=== PATIENT | male | born 1940 | race Caucasian/White ===

== ENCOUNTER → 2018-05-14 | Outpatient (CLI) | payer MEDICARE, OTHER ==
[~2018-05-14] MED LIST: ACTOS 45MG45 MG/TAB PO; ASPIRIN 81M81 MG/TA2 PO; BUSPAR DIVIDOSE15 MG PO; BYSTOLIC5 MG PO; CATAPRES 0.1MG0.1 MG PO; COUMADIN 5MG5 MG/TAB PO; COUMADIN 77.5 MG/TAB PO; FLOMAX 0.40.4 MG/CAP PO; GLUCOPHAGE1000 MG PO; GLUCOTROL 5M5 MG/TAB PO; GLUCOTROL10 MG PO; HCTZ 25MG TAB25 MG PO; LANOXIN 0.25M0.25 MG PO; LANTUS100 U/ML SQ; LIPITOR 40MG TA40 MG PO; NEURONTIN300 MG/CAP PO; NIACOR500 MG PO; PERCOCET 325 MG1 TA2 PO; PRINIVIL10 MG PO; TRICOR145 MG PO; ZOFRAN8 MG PO
== END ==
LOC: COL.PUL 08:55
DX: R91.8 Other nonspecific abnormal finding of lung field (principal); I27.20 Pulmonary hypertension, unspecified; R06.02 Shortness of breath
CPT/HCPCS: A9539; A9540; J7674

== ENCOUNTER → 2019-03-26 | Outpatient (CLI) | payer MEDICARE, OTHER ==
[~2019-03-26] MED LIST changes: +ELIQUIS 5MG PO
== END ==
LOC: COL.RAD 09:27
DX: N18.3 Chronic kidney disease, stage 3 (moderate) (principal); N28.1 Cyst of kidney, acquired

== ENCOUNTER → 2019-07-05 | Outpatient (CLI) | payer MEDICARE, OTHER | LOC: COL.RAD 09:34 | DX: M47.816 Spondylosis without myelopathy or radiculopathy, lumbar region (principal) ==

== ENCOUNTER → 2019-07-31 | Outpatient (CLI) | payer MEDICARE, OTHER | LOC: MHCPAIN 10:11 | DX: G89.29 Other chronic pain (principal); M47.817 Spondylosis without myelopathy or radiculopathy, lumbosacral region; M54.16 Radiculopathy, lumbar region; M53.3 Sacrococcygeal disorders, not elsewhere classified; M96.1 Postlaminectomy syndrome, not elsewhere classified | CPT/HCPCS: G0463 ==

== ENCOUNTER → 2019-10-09 | Outpatient (CLI) | payer MEDICARE, OTHER | LOC: MHCPAIN 13:07 | DX: G89.29 Other chronic pain (principal); M47.817 Spondylosis without myelopathy or radiculopathy, lumbosacral region; M54.16 Radiculopathy, lumbar region; M53.3 Sacrococcygeal disorders, not elsewhere classified; M48.061 Spinal stenosis, lumbar region without neurogenic claudication | CPT/HCPCS: G0463 ==

== ENCOUNTER 2019-11-12 10:00 | Outpatient (RCR) | payer MEDICARE, OTHER | END 2019-11-14 | disposition home or self-care (01) | LOC: WSPT | DX: M96.1 Postlaminectomy syndrome, not elsewhere classified (principal); M53.3 Sacrococcygeal disorders, not elsewhere classified; M47.27 Other spondylosis with radiculopathy, lumbosacral region ==

== ENCOUNTER 2019-12-31 16:00 | Outpatient (RCR) | payer MEDICARE, OTHER | END 2020-01-30 14:14 | disposition home or self-care (01) | LOC: WSPT 16:00 | DX: M47.27 Other spondylosis with radiculopathy, lumbosacral region (principal) ==

== ENCOUNTER → 2020-05-11 | Outpatient (CLI) | payer MEDICARE, OTHER ==
[~2020-05-11] MED LIST changes: -HCTZ 25MG TAB25 MG PO; +HCTZ12.5TAB PO; +TRULICITY0.75 MG/0. SQ
== END ==
LOC: COL.RAD 09:59
DX: M47.26 Other spondylosis with radiculopathy, lumbar region (principal)

== ENCOUNTER → 2020-05-19 | Outpatient (CLI) | payer MEDICARE, OTHER ==
[2020-05-19 11:34] LABS: HEMATOCRIT 43.9 % (42.0-52.0); HEMOGLOBIN 14.3 g/dl (13.5-18.0); MEAN CELL VOLUME 93 fl (80.0-100.0); MEAN CORPUSCULAR HEMOGLOBIN 30 pg (27.0-31.0); MEAN CORPUSCULAR HGB CONC 33 g/dl (33.0-37.0); PLATELET COUNT 286 K/mm3 (130-400); RED BLOOD COUNT 4.71 M/mm3 (4.20-5.60); REDCELL DISTRIBUTION WIDTH-CV 13.9 % (11.5-14.5)
[2020-05-19 11:47] LABS: CALCIUM 10.4 mg/dL (8.4-10.2); CREATININE, serum 1.74 (0.66-1.25); POTASSIUM 4.6 mmol/L (3.4-5.0)
== END ==
LOC: COL.LAB 10:24
PROVIDERS: Internal Medicine Interventional Cardiology
DX: I10 Essential (primary) hypertension (principal); Z20.828 Contact with and (suspected) exposure to other viral communicable diseases

== ENCOUNTER → 2020-06-11 | Outpatient (CLI) | payer MEDICARE, OTHER ==
[~2020-06-11] MED LIST changes: +NORCO 325 MG-51 TAB PO
[2020-06-11 10:51] LABS: HEMOGLOBIN 14.3 g/dl (13.5-18.0); MEAN CELL VOLUME 93 fl (80.0-100.0); MEAN CORPUSCULAR HEMOGLOBIN 30 pg (27.0-31.0); MEAN CORPUSCULAR HGB CONC 33 g/dl (33.0-37.0); MEAN PLATELET VOLUME 10.7 fl (7.4-10.4); PLATELET COUNT 283 K/mm3 (130-400); RED BLOOD COUNT 4.72 M/mm3 (4.20-5.60)
[2020-06-11 11:04] LABS: BILIRUBIN,TOTAL 0.8 mg/dL (0.0-1.0); CREATININE, serum 1.94 (0.66-1.25); POTASSIUM 4.6 mmol/L (3.4-5.0); TOTAL PROTEIN 7.2 gm/dL (6.4-8.2)
== END ==
LOC: COL.LAB 10:06
PROVIDERS: Internal Medicine Interventional Cardiology
DX: Z01.812 Encounter for preprocedural laboratory examination (principal); I73.9 Peripheral vascular disease, unspecified; Z20.828 Contact with and (suspected) exposure to other viral communicable diseases

== ENCOUNTER 2020-06-14 16:20 | Emergency (ER) | payer MEDICARE, OTHER ==
[~2020-06-14] VITALS: Ht 182.9 cm; Wt 115.9 kg
[~2020-06-14 16:20] MED LIST changes: -NORCO 325 MG-51 TAB PO
[2020-06-14 16:30] VITALS: TEMP 98
[2020-06-14 17:10] LABS: HEMATOCRIT 43.4 % (42.0-52.0); HEMOGLOBIN 14.1 g/dl (13.5-18.0); MEAN CELL VOLUME 93 fl (80.0-100.0); MEAN CORPUSCULAR HEMOGLOBIN 30 pg (27.0-31.0); MEAN CORPUSCULAR HGB CONC 33 g/dl (33.0-37.0); MEAN PLATELET VOLUME 10.3 fl (7.4-10.4); PLATELET COUNT 256 K/mm3 (130-400); RED BLOOD COUNT 4.66 M/mm3 (4.20-5.60)
[2020-06-14 17:23] LABS: ALANINE AMINOTRANSFERASE 20 U/L (4-49); ALKALINE PHOSPHATASE 60 U/L (50-136); ANION GAP 6 mmol/L (7-16); AST,SGOT 31 U/L (15-37); BILIRUBIN,TOTAL 1.2 mg/dL (0.0-1.0); BLOOD UREA NITROGEN 21 mg/dL (9-20); CARBON DIOXIDE 25 mmol/L (22-30); CHLORIDE 102 mmol/L (98-107); CREATININE, serum 1.65 (0.66-1.25); GLUCOSE 242 mg/dL (74-106); POTASSIUM 4.5 mmol/L (3.4-5.0); SODIUM 134 mmol/L (137-145); TOTAL PROTEIN 7.1 gm/dL (6.4-8.2)
[2020-06-14 17:41] LABS: TROPONIN-I < 0.012 ng/mL (0.000-0.035)
[2020-06-14 17:56] LABS: LYMPHOCYTE 16 % (20.0-51.0); NEUTROPHILS 79 % (42.0-75.2)
[2020-06-14 17:57] LABS: HYPOCHROMIA 1+; PLATELET ESTIMATE NORMAL (NORMAL)
[2020-06-14] MEDS ORDERED: NORCO 325 MG-51 TAB PO (19:20)
[2020-06-14 19:38] VITALS: BP 106/76; PULSE 84
== END 2020-06-14 19:38 | disposition home or self-care (01) ==
LOC: COL.ER 16:20
PROVIDERS: Emergency Medicine
DX: M54.2 Cervicalgia (principal); M54.6 Pain in thoracic spine; I10 Essential (primary) hypertension; E11.9 Type 2 diabetes mellitus without complications; I48.91 Unspecified atrial fibrillation; Z79.4 Long term (current) use of insulin; Z79.01 Long term (current) use of anticoagulants

== ENCOUNTER → 2020-07-28 | Outpatient (CLI) | payer MEDICARE, OTHER ==
[~2020-07-28] MED LIST changes: +NORCO 325 MG-51 TAB PO
[2020-07-28 11:17] LABS: CREATININE, serum 1.78 (0.66-1.25)
[2020-07-28 11:24] LABS: PRE ALBUMIN 18.1 mg/dL (17.6-36.0)
== END ==
LOC: COL.LAB 10:33
PROVIDERS: Neurological Surgery
DX: Z01.812 Encounter for preprocedural laboratory examination (principal); Z00.8 Encounter for other general examination; R27.8 Other lack of coordination; R26.9 Unspecified abnormalities of gait and mobility

== ENCOUNTER → 2021-01-25 | Outpatient (CLI) | payer MEDICARE, OTHER | LOC: COL.CARD | DX: M62.838 Other muscle spasm (principal); M54.42 Lumbago with sciatica, left side; M54.41 Lumbago with sciatica, right side; G89.29 Other chronic pain ==

== ENCOUNTER 2022-06-21 13:50 | Inpatient (IN) | payer MEDICARE, OTHER ==
[~2022-06-21] VITALS: Ht 182.9 cm; Wt 113.6 kg
[2022-06-21 14:20] LABS: BASO # 0.1 K/mm3 (0.0-0.2); BASO % 0.9 % (0.0-2.0); EOS # 0.1 K/mm3 (0.0-0.7); EOS % 1.1 % (0.0-4.0); GRAN # 7.3 K/mm3 (1.4-6.5); HEMATOCRIT 45.2 % (42.0-52.0); HEMOGLOBIN 15.3 g/dl (13.5-18.0); LYMPH # 1.5 K/mm3 (1.2-3.4); MEAN CELL VOLUME 91 fl (80.0-100.0); MEAN CORPUSCULAR HEMOGLOBIN 31 pg (27-31); MEAN CORPUSCULAR HGB CONC 34 g/dl (33.0-37.0); MEAN PLATELET VOLUME 10.3 fl (7.4-10.4); MONO # 0.9 K/mm3 (0.1-0.6); MONO % 8.9 % (1.7-9.3); PLATELET COUNT 348 K/mm3 (130-400); RED BLOOD COUNT 4.97 M/mm3 (4.20-5.60)
[2022-06-21 14:38] LABS: BILIRUBIN,TOTAL 1.7 mg/dL (0.2-1.2); C-REACTIVE PROTEIN 1.68 mg/dL (0.00-0.50); CALCIUM 10.8 mg/dL (8.4-10.2); CREATININE, serum 2.05 mg/dL (0.72-1.25); POTASSIUM 4.4 mmol/L (3.5-4.5); TOTAL PROTEIN 8.2 gm/dL (6.2-8.1)
--- NOTE | 2022-06-21 15:49 | NUR ---
Warper Tender was consulted in the ED for patient who has had several ED visits at [facility] for intermittent confusion and is now here for a "second opinion" after being sent home each time. KAMRYN met with patient and patient's , Danielle however had difficulty obtaining much information as Danielle is hard of hearing and patient was only able to answer limited questions. KAMRYN contacted patient's son, Rajesh (ph#[phone]) who advised he was here visiting patient about 9 days ago and patient was "sharp" and able to discuss politics and sports. Rajesh advised patient is normally independent with ADLS however over the last few days, patient has been unable to manage his medications as he normally does and can't even use the TV remote due to confusion. Rajesh advised Holly Jay from [facility] made a visit to patient's home today and recommended patient been seen in ED. KAMRYN advised Art that per ED Physician, patient does not meet criteria for admission to the hospital and would be discharged home. Rajesh verbalized understanding, but also frustration. KAMRYN spoke with RN who advised patient is able to independently ambulate and will need an outpatient MRI. KAMRYN contacted Dr. Shaw's office and scheduled an appointment for patient tomorrow at 0945. KAMRYN provided this appointment to RN as well as patient's son. KAMRYN then contacted Holly at [facility] who advised they will do an admission for patient in his home on . KAMRYN provided this update to RN. KAMRYN was then contacted by patient's son, Rajesh who advised patient has PTSD and is claustraphobic, so will need sedation for an MRI. KAMRYN provided this information to ED RN. KAMRYN made report to APS (intake #[id number]).
[2022-06-21] MEDS ORDERED: NEURONTIN600 MG/TAB PO (16:59)
[2022-06-21] MEDS ORDERED: MASON NATURAL2000 IU PO (17:03)
[2022-06-21 18:09] VITALS: BP 165/85; PULSE 76; TEMP 97.9
[2022-06-21 19:29] VITALS: BP 155/96; PULSE 74
--- NOTE | 2022-06-21 22:11 | NUR ---
ADMISSION NOTE PATIENT ALERT AND DISORIENTED. PATIENT ANSWERS QUESTIONS INAPPROPRIATELY. PATIENT PLEASANT AND COOPERATIVE.PATIENT NOTED TO HAVE ULCER ON RIGHT LATERAL FOOT NEAR 5TH TOE. ULCER DRAINING, ULCER CLEANED AND TELFA,GAUZE ROLL AND TAPE APPLIED.
[2022-06-21 22:15] VITALS: BP 143/54; PULSE 73; TEMP 98.2
[2022-06-22 02:03] LABS: COLLECTION METHOD CLEAN CATCH
[2022-06-22 02:09] LABS: PH 6 (5-8); SQUAMOUS EPITHELIAL None Seen /hpf (0-10); URINE APPEARANCE Clear (CLEAR/HAZY); URINE BACTERIA None Seen /hpf (NONE SEEN); URINE BLOOD Negative (NEGATIVE); URINE COLOR Yellow (YELLOW); URINE GLUCOSE 2+ (NEGATIVE); URINE KETONE Trace (NEGATIVE); URINE NITRATE Negative (NEGATIVE); URINE PROTEIN(semi-quant) Negative (NEGATIVE); URINE RBC 0-2 /hpf (0-2); URINE UROBILINOGEN Negative (NEGATIVE)
--- NOTE | 2022-06-22 05:37 | NUR ---
PATIENT RESTED QUIETLY THIS SHIFT. PATIENT DID NOT USE CALL LIGHT FOR NEEDS. PATIENT UP TO BATHROOM SEVERAL TIMES AND UA OBTAINED. NEURO CHECKS DONE WHILE AWAKE PER PROVIDER. PATIENT DENIED NEEDS AND RECEIVED NO PRN MEDICATIONS.
[2022-06-22 07:06] LABS: CALCIUM 10.1 mg/dL (8.4-10.2); CREATININE, serum 1.77 mg/dL (0.72-1.25); MAGNESIUM 1.7 mg/dL (1.6-2.6); POTASSIUM 4.1 mmol/L (3.5-4.5)
--- NOTE | 2022-06-22 08:52 | NUR ---
Structural Steel Shop Supervisor notified Dr. Shaw's office and Dareki at [facility] that patient was admitted.
--- NOTE | 2022-06-22 09:52 | NUR ---
Initial visit attempt; Patient sleeping and also suffers from Dementia. Aluminum Welder left card offering Spiritual Care in case a family member might visit and see there is spiritual care available. Aluminum Welder will follow up.
--- NOTE | 2022-06-22 10:12 | NUR ---
Patient currently resting in bed. Respirations are even and unlabored. Per additional nursing order, patient has not been awoken for vitals or neuro checks. No signs/symptoms of pain or discomfort at this time. Call light in reach. Fall precautions in place.
[2022-06-22 10:53] VITALS: BP 137/90; PULSE 93; TEMP 98.6
--- NOTE | 2022-06-22 15:04 | NUR ---
Neurology has been consulted and the patient is to have an MRI. PT is recommending home with spouse.
[2022-06-22 16:19] VITALS: BP 153/76; PULSE 89; TEMP 98
--- NOTE | 2022-06-22 18:00 | NUR ---
Shift assessment preformed. Scheduled medications given. Patient alert, but intermittently disoriented. Remainder of neuro assessment WNL. Patient c/o of aching pain in his left side. Patient repositioned, denied need for any further intervention. Patient is currently sitting up in recliner. IV fluids running as ordered. Call light within reach. Fall precautions in place.
[2022-06-22 20:09] VITALS: BP 150/60; PULSE 69; TEMP 98
--- NOTE | 2022-06-22 23:06 | NUR ---
Patient denies pain and discomfort. Confusion comes and goes. IV fluids continue per orders. In bed with call light within reach. Bed alarm on.
[2022-06-23 04:41] VITALS: BP 147/69; PULSE 87; TEMP 97.5
--- NOTE | 2022-06-23 05:12 | NUR ---
IV fluids continue per orders. No combative behaviors noted this shift. Has been cooperative with cares. In bed with call light within reach. Bed alarm on.
--- NOTE | 2022-06-23 06:15 | NUR ---
Went to perform EEG on patient. I explained to him what the procedure was and he appeared sleeping and mumbled at me. I placed a couple of electrodes on his head and he took them off. I informed RN that EEG was not able to be performed at this time.
[2022-06-23 09:10] VITALS: BP 148/56; PULSE 79; TEMP 97.6
--- NOTE | 2022-06-23 11:00 | NUR ---
PATIENT HAS TAKEN HIS FALL RISK BAND OFF TWO TIMES. EACH TIME A NEW ONE APPLIED. PATIENT DEMENTED AN NON COMPLIANT.
[2022-06-23 12:05] VITALS: BP 153/61; PULSE 61; TEMP 97.3
--- NOTE | 2022-06-23 14:36 | NUR ---
KAMRYN staffed with the hospitalist. With the patient's aggression and combativeness upon discharge, the hospitalist would like to look at the patient going to a geripsych unit. KAMRYN contacted and updated the patient's son, Rajesh. Art is open to this and the patient going to a SNF for a short time, if the patient does not qualify for geripsych. He states that the doctor informed him that the patient's behaviors have gotten better. SW inquired if the patient has a DPOA-HC. Rajesh states that the patient does not and this is something they were meaning to work on soon. He asked if this is something we could get done while here. SW informed him that with the patient having dementia, the patient has to be fully oriented and able to verbalize what a DPOA-HC means and who he would want to designate. Art verbalzied understanding. KARMYN contacted and faxed a referral to [facility], [facility], [facility], [facility], and [facility] in [place]. KAMRYN also contacted and faxed referrals to [facility], [facility], [place], and [facility]. Awaiting screens.
--- NOTE | 2022-06-23 15:28 | NUR ---
Antonio, at [facility], states that he will have their team assess the patient; but they would need a DPOA-HC. Ying, at [facility], reports that they are on hold with admissions right now, due to COVID. They may be able to start looking at taking patients again next Monday. Leslie, at [facility], reports that they received the referral; but they would also require a DPOA-HC. SW staffed with the patient's RN about completing a DPOA-HC with the patient. The patient's RN reports that family just informed her the patient is becoming agitated. The RN reports that the patient has been confused and not oriented today, to be able to complete a DPOA-HC.
[2022-06-23 15:43] VITALS: BP 129/66; PULSE 68; TEMP 98.4
--- NOTE | 2022-06-23 16:17 | NUR ---
[facility] is on a temporary pause for admissions.
--- NOTE | 2022-06-23 16:34 | NUR ---
Paola, at [facility], reports that they are not able to accept the patient; due to not having any special care beds.
[2022-06-23 20:33] VITALS: BP 156/62; PULSE 70; TEMP 98.6
[2022-06-23 22:48] VITALS: BP 174/82; PULSE 98; TEMP 97.7
[2022-06-24 12:27] VITALS: BP 137/82; PULSE 109; TEMP 98.3
[2022-06-24 13:29] LABS: CALCIUM 10.3 mg/dL (8.4-10.2); CREATININE, serum 1.68 mg/dL (0.72-1.25); POTASSIUM 4.2 mmol/L (3.5-4.5)
--- NOTE | 2022-06-24 15:09 | NUR ---
Demetria, at [facility], reports that they would also require a DPOA-HC or guardian. KAMRYN staffed with the patient's RN. The patient became agitated and combative with staff last night. He received IM Haldol. He continued to sleep this morning. KAMRYN contacted the patient's son, Rajesh, to update on how we would not be able to complete a DPOA-HC with the patient, due to his poor mentation and dementia. KAMRYN informed him that they would need to pursue with guardianship for the patient to be able to move forward with going to any facility, otherwise the only option would be home. Rajesh is agreeable with moving forward with guardianship and going through [facility]'s programming intern. The patient's other son, Eduard, then contacted KAMRYN. He states that the patient wears a CPAP religiously at night, when at home, so this could be a reason why he is not waking up. KAMRYN notified the patient's RN of this. SW completed the Guardianship Questionnaire. The hospitalist completed the Report of Examination. KAMRYN emailed both documents to Elliot Uribe, children's literature professor. Elliot states that they will get started on the process for guardianship.
--- NOTE | 2022-06-24 16:00 | NUR ---
Elliot Uribe, disability attorney, emailed this SW. He has talked to the patient's sons. His sons would like to attempt to complete a DPOA-HC with the patient, if he is able to and understands what it is. They would like to be on speaker phone. KAMRYN and KAMRYN Dalal, met with the patient. KAMRYN first contacted Art. Art stated that the patient responds better to Al and requested that SW contact Al instead. KAMRYN contacted AL and had him on speaker phone. The patient was sleeping. SW's and Al attempted to wake the patient. The patient would wake for a moment, make a noise, and then fall back asleep. We were unable to discuss the DPOA-HC. KAMRYN informed Elliot of this.
[2022-06-24 18:00] VITALS: BP 154/71; PULSE 93; TEMP 98.4
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
[2022-06-24 20:14] VITALS: BP 147/82; PULSE 110; TEMP 98.9
--- NOTE | 2022-06-25 03:09 | NUR ---
SPOKE WITH RASHARD HODGES REGARDING NO IV ACCESS. SHE IS OKAY WITH HAVING NO IV ACCESS AT THIS TIME. PATIENT WILL NOT LEAVE IV IN, OR LET US START A NEW ONE. WILL LET NEXT SHIFT KNOW.
[2022-06-25 08:00] VITALS: BP 139/77; PULSE 90; TEMP 97.4
--- NOTE | 2022-06-25 11:14 | NUR ---
Patient has no IV access, approved per provider. Patient resting in bed, calm, withdrawn, flat affect. Alert to name, date of , that he is in hospital, but aware as to why. Took meds with no complaint, whole with water. Patient fed self. All fall precuations on. Patient unwilling to roll to visualize bottom. Spoke with both of patient's sons. They would like to have patient tested for COVID, patient does have intermittent cough and was not tested on admission. Children note that patient has and they are unsure as to why spouse has not been included in conversations reguarding discharge planning. Will speak with SW today. other long no concerns at this time.
[2022-06-25 12:00] VITALS: BP 155/66; PULSE 62
[2022-06-25 16:00] VITALS: BP 150/76; PULSE 88
[2022-06-25 17:06] VITALS: TEMP 98.5
--- NOTE | 2022-06-25 18:26 | NUR ---
Patient resting in bed. No attempts today to get out of bed. Patient refused lunch and dinner. Patient calm, sleeping. No complaints of pain. Family concerns around placement and DPOA process. Son Ramiro not understanding why patient's has not been spoken to regarding patient condition and placement. Spoke to SW today, they will follow up tomorrow and Monday.
[2022-06-25 20:33] VITALS: BP 155/89; PULSE 93; TEMP 98.8
[2022-06-26 00:15] VITALS: BP 149/65; PULSE 73; TEMP 99
--- NOTE | 2022-06-26 02:16 | NUR ---
Pt alert and oriented to person and place. Pt forgetful and forgets limitations. Will get OOB without calling for assistance. Pt re-oriented and re-educated frequently. Fall precautions in place. Pt refusing security monitor and IV. Nursing notes in place. Pt gets Q4 neuro assessments while awake. Pt tolerating PO. Calm and cooperative this evening. Up to void. VS stable. On room air. Shift assessment performed. Medications administered and education provided. Pt has a wound on the right side of the right foot. I re-dressed the wound this evening. It is scabbed, with drainage noted on the old dressing. Pt denies pain at the foot site. Pt denies acute pain. Pt does not report any questions. Bed low and locked, call sarabia within reach. No new concerns at this time.
[2022-06-26 04:20] VITALS: BP 156/70; PULSE 53; TEMP 98
--- NOTE | 2022-06-26 06:52 | NUR ---
No adverse events overnight. Pt alert, paritally oriented. Q4 neuro assessments continuing when pt is awake. VS stable. On room air. Pt up to void overnight. Denies pain at this time. Fall precautions in place. Continuing to refuse tele/IV access. Bed low and locked, call sarabia within reach. No new concerns at this time.
[2022-06-26 07:40] LABS: BASO # 0.1 K/mm3 (0.0-0.2); BASO % 0.6 % (0.0-2.0); EOS # 0.4 K/mm3 (0.0-0.7); EOS % 3.3 % (0.0-4.0); GRAN # 8.4 K/mm3 (1.4-6.5); HEMATOCRIT 46.2 % (42.0-52.0); HEMOGLOBIN 15.4 g/dl (13.5-18.0); LYMPH # 1.6 K/mm3 (1.2-3.4); LYMPH % 13.5 % (20.0-51.0); MEAN CELL VOLUME 92 fl (80.0-100.0); MEAN CORPUSCULAR HEMOGLOBIN 31 pg (27-31); MEAN CORPUSCULAR HGB CONC 33 g/dl (33.0-37.0); MONO # 1.1 K/mm3 (0.1-0.6); MONO % 9.3 % (1.7-9.3); PLATELET COUNT 366 K/mm3 (130-400); RED BLOOD COUNT 5.05 M/mm3 (4.20-5.60); REDCELL DISTRIBUTION WIDTH-CV 13.2 % (11.5-14.5)
[2022-06-26 07:56] LABS: CALCIUM 10.8 mg/dL (8.4-10.2); CREATININE, serum 1.75 mg/dL (0.72-1.25)
[2022-06-26 08:00] VITALS: BP 152/83; PULSE 98; TEMP 98
--- NOTE | 2022-06-26 08:45 | NUR ---
PATIENT AWAKE, ALERT AND CALM. ORIENTATION QUESTIONABLE. PATIENT VOICING NO COMPLAINTS AT THIS TIME. HE IS RESTING IN BED, CALLIGHT, BELONGINGS AND BREAKFAST ALL WITHIN REACH.
--- NOTE | 2022-06-26 08:57 | NUR ---
PATIENTS SON, TENNILLE, CALLED FOR UPDATE. INFORMED HIM PATIENT HAD NO SHOW OF AGRESSION OVER NIGHT. CURRENTLY AWAKE, ALERT AND EATING BREAKFAST. PATIENTS SON ART INQUIRED IF PATIENTS IS ABLE TO COME VISIT. I INFORMED HIM SHE CAN COME ANYTIME SHE WOULD LIKE BETWEEN 8AM-8PM. PATIENT SON INSISITED/ASSUMED THAT LILIA IS MORE ORIENTED AND "LUCID." I INFORMED HIM PATIENT IS CALM AT THE MOMENT AND ORIENTATION IS STILL QUESTIONABLE.
[2022-06-26 12:00] VITALS: BP 151/77; PULSE 88; TEMP 97.4
[2022-06-26 16:00] VITALS: BP 151/71; PULSE 79; TEMP 98.5
--- NOTE | 2022-06-26 16:55 | NUR ---
SW returned call to patient's son Rajesh Bermudez [phone]. Son wanted to know if patient could have a COVID test due to patient recently having frequent visits to [facility] and being informed that there have been several cases there. KAMRYN called nurse to request Covid screen. Nurse provided patient does not display any symptoms at this time, but would call physician to make the request. Nurse stated physician could not be reached at this time and message left. SW called to inform son of provided information. SW will follow up on 06/27/2022 with request information.
--- NOTE | 2022-06-26 17:24 | NUR ---
CHILD CARE AIDE INFORMED ME THAT THE PATIENTS SON IS REQUESTING WE COVID SWAB THE PATIENT BECAUSE HE WAS PREVIOUSLY AT [facility]. INFORMED MD PATIENT HAS KNOWN AGRESSION TOWARDS STAFF AND IS HAVING NO COVID SYMPTOMS. WELL IF PATIENT GETS ACCEPTED TO A FACILITY HE WILL MORE THAN LIKELY NEED ANOTHER TEST SO ITS RECENT TO DATE OF TRANSFER. MD VOICED THAT AT THIS TIME IT IS UNNECESSARY FOR THE PATIENT TO GET COVID TESTED. WILL INFORM CHILD CARE AIDE IN AM.
--- NOTE | 2022-06-26 19:59 | NUR ---
Patient assessed at this time. Denies having pain and discomfort. Alert and oriented at this time. High fall risk precautions in place. Voices no questions, needs, or concerns at this time. In bed with call light within reach. Bed alarm on.
[2022-06-26 21:05] VITALS: BP 135/77; PULSE 88; TEMP 98.4
[2022-06-27 00:01] VITALS: BP 129/74; PULSE 89; TEMP 98.4
[2022-06-27 04:19] VITALS: BP 146/86; PULSE 60; TEMP 97.8
--- NOTE | 2022-06-27 05:52 | NUR ---
Patient has been setting of bed alarm frequently during the night. Confused on place, time, and situation. Unable to redirect most of the time. Patient is sitting in recliner in room at this time. Chair alarm is on. High fall risk precautions in place, but is refusing to wear any socks at this time, taking them off after staff puts them on. Patient denies pain and discomfort. Call light within reach.
[2022-06-27 07:48] VITALS: BP 145/78; PULSE 47; TEMP 98
--- NOTE | 2022-06-27 08:15 | NUR ---
ATTEMPTED TO ASSES PATIENTS ORIENTATION. WHEN ASKED WHERE HE IS, HE WAS UNABLE TO ANSWER, JUST KEPT MUMBLING "HMMM.." THEN I ASKED THE PATIENT IF HE COULD TELL ME WHAT STATE HE IS IN. HE RESPONSED "[place] , I GUESS." THEN I ASKED IF HE COULD TELL ME WHAT BUILDING HE IS IN, AND WHO I AM. HE WAS UNABLE TO ANSWER. I ASKED PATIENT HIS BIRTHDAY, HE JUST KEPT SAYING "[birth year]" BUT UNABLE TO COMPLETE YEAR. AFTER THIS, HE BEGAN TO TALK ABOUT [place]. PATIENT IS CALM, RESTING IN HIS CHAIR, EATING BREAKFAST.
[2022-06-27 11:34] VITALS: BP 136/87; PULSE 88; TEMP 97.8
--- NOTE | 2022-06-27 12:00 | NUR ---
PATIENT HAS ATTEMPETD TO GET OUT OF BED MULTIPLE TIMES. HAS BEEN MESSING WITH THE BED ALARM BUTTONS EACH TIME AND ASKING HOW TO TURN IT OFF.
--- NOTE | 2022-06-27 15:30 | NUR ---
PATIENT HAS SUCCESFUL TURNED OFF HIS BED ALARM MULTUIPLE TIMES
--- NOTE | 2022-06-27 16:35 | NUR ---
Per Elliot Uribe, the patient has too many resources to apply for [facility].
--- NOTE | 2022-06-27 17:18 | NUR ---
PATIENT BECOMING ANNOYED AND STATING HE IS GARTH LEAVE, PRN SEROQUEL GIVEN
--- NOTE | 2022-06-27 17:35 | NUR ---
PATIENT BECOMING INCREASINLY AGITATED. KATHIA CALLED FOR ATIVAN PO DUE TO LACK OF IV. KATHIA ORDERED FOR PRN ATIVAN 0.5 MG PO Q6H. DCd iv ativan
--- NOTE | 2022-06-27 17:40 | NUR ---
PATIENT CURRENTLUY WALKING DOWN HALLWAY, REFUSING TO GET BACK IN ROOM NO MATTER HOW KAREL ATTEMPTS AT REORIENTATION, PATIENT IS CONVINCED HE NEEDS TO LEAVE. WHEN ASKEDY, WE ARE UNABLE TO UNDERSTAND HIS ANSWER. . CALLED AND GOT X1 HALDOL 2MG IM FROM DR SYED.
--- NOTE | 2022-06-27 18:00 | NUR ---
PATIENT STILL AGITATED AND REFUSING TO SIT OR LAY IN BED EVEN THOUGH HE IS UNSTEADY ON HIS FEET AND HAS ALMOST FELL MULTIPLE TIMES. IM HALDOL 2MG X1 GIVEN AGAIN AND PATIENT ELFT SHORTLY AFTER THAT DOWN THE HALLWAY NIGHT RASHARD HODGES CALLED AND GAVE A 1X ZYPREXA ORDER.
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
--- NOTE | 2022-06-27 19:05 | NUR ---
ANOTHER IM ZYPREXA GIVEN D/T PATIENT STILL AGITATED AND WALKED DOWN TO SURGICAL UNIT. RASHARD HODGES STATED IF THIS LAST DOSE OF ZYPREXA DOES NOT HELP IN 25-30 MIN GIVE ONE MORE 2MG IM HALDOL, IF BOTH ARE UNABLE TO HELP THEN CALL HER BACK REPORT GIVEN TO NIGHT NURSE, ALL INFO PASSED ALONG
--- NOTE | 2022-06-28 02:57 | NUR ---
Patient assessed around 1929. Confused, trying to leave. Staff ambulated with patient up and down hallway, unable to redirect patient. Given Benadryl and Haldol per ordes around 1944. Did sit down in wheelchair and start to fall asleep. Staff stayed with patient and assisted into bed. Around 2229, patient getting anxious again. Given another dose of IM Benadryl and Haldol per orders at 2254. Medication effective. Patient in bed with call light within reach. In home clothing, but does have bed alarm on and fall signs are in place. Non-skid socks in place.
--- NOTE | 2022-06-28 09:00 | NUR ---
Assessment limited d/t pt cooperation being very limited. Pt agitated after checking blood sugar, and would not allow staff to take bp. Required several staff members and family to get patient back into room. Assisted pt in shaving as he stated that's what he wanted. He did sit and eat some breakfast after.
--- NOTE | 2022-06-28 14:30 | NUR ---
Pt sleeping at this time.
--- NOTE | 2022-06-28 19:11 | NUR ---
Pt slept most of the afternoon. Was not disturbed d/t patient being agitated when bothered.
[2022-06-28 20:20] VITALS: BP 137/78; PULSE 88; TEMP 98.9
--- NOTE | 2022-06-28 22:30 | NUR ---
PATIENT IS SITTING IN RECLINER ALERT AND ORIENTED AT TIME OF ASSESSMENT. DENIES PAIN, CONCERNS OR NEEDS AT THIS TIME. CALL LIGHT WITHIN REACH, CHAIR ALARM IN PLACE.
[2022-06-29 04:10] VITALS: BP 155/88; PULSE 91; TEMP 97.3
--- NOTE | 2022-06-29 05:56 | NUR ---
PATIENT RESTING COMFORTABLY IN BED WITH EYES CLOSED. PATIENT AWOKE ONCE FOR BATHROOM USE AND WAS PLEASANT AND OREIENTED TO PERSON AND PLACE. PATIENT RETURNED TO BED AFTER BATHROOM USE AND DENIES ANY PAIN OR CONCERNS. CALL LIGHT IS WITHIN REACH OF PATIENT.
[2022-06-29 08:05] VITALS: BP 135/82; PULSE 97; TEMP 97.5
--- NOTE | 2022-06-29 08:14 | NUR ---
Pt assessment complete. Pt is pleasant this morning has not been combative, answering questions to the best of his ability. He is alert but is only oriented to person. He denies any pain. Is able to make needs known. No needs at this time. Bed alarm in place.
[2022-06-29 08:16] LABS: BASO # 0.1 K/mm3 (0.0-0.2); BASO % 0.8 % (0.0-2.0); EOS # 0.2 K/mm3 (0.0-0.7); EOS % 1.9 % (0.0-4.0); GRAN # 7.8 K/mm3 (1.4-6.5); HEMATOCRIT 45.8 % (42.0-52.0); HEMOGLOBIN 15.5 g/dl (13.5-18.0); LYMPH # 1.5 K/mm3 (1.2-3.4); LYMPH % 14.1 % (20.0-51.0); MEAN CELL VOLUME 91 fl (80.0-100.0); MEAN CORPUSCULAR HEMOGLOBIN 31 pg (27-31); MEAN CORPUSCULAR HGB CONC 34 g/dl (33.0-37.0); MEAN PLATELET VOLUME 10.5 fl (7.4-10.4); MONO # 0.9 K/mm3 (0.1-0.6); MONO % 8.3 % (1.7-9.3); PLATELET COUNT 363 K/mm3 (130-400); RED BLOOD COUNT 5.04 M/mm3 (4.20-5.60); REDCELL DISTRIBUTION WIDTH-CV 12.7 % (11.5-14.5)
[2022-06-29 08:38] LABS: CREATININE, serum 1.84 mg/dL (0.72-1.25); POTASSIUM 4.2 mmol/L (3.5-4.5)
[2022-06-29 11:37] VITALS: BP 174/92; PULSE 101; TEMP 98.1
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
--- NOTE | 2022-06-29 15:44 | NUR ---
Demetria with Intake at [facility] calls and states she continues to follow patient case, but their facility is now on a 14 day hold due to Covid. She can only accept patients who have tested positive for Covid within the last 90 days. Journeyman Power Plant Operator reviewed patient record and no indication of positive Covid infection in the last 90 days. Journeyman Power Plant Operator will follow up with patient sons to inquire about positive Covid infection within 90 days to for potential placement to [facility] when guardianship is court ordered.
[2022-06-29 16:00] VITALS: BP 159/98; PULSE 75; TEMP 98.2
--- NOTE | 2022-06-29 19:02 | NUR ---
Pt pleasant today, no issues with him being combative. Pt would attempt to answer questions but was still confused and not able to answer questions appropriately. Ambulates to and from the restroom steadily with staff standing by. Pt refused to eat much through the day. Pt sitting up in bed, bed alarm on.
[2022-06-29 20:24] VITALS: BP 149/74; PULSE 91; TEMP 97.6
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
--- NOTE | 2022-06-30 05:57 | NUR ---
Pt resting at this time. Forgets limitations. Pt got OOB a few times overnight without calling for assistance. Q4 neuro checks and Q4 VS assessed only when pt was awake per nursing notification order. Fall precautions in place. Pt refusing telemetry and IV access. Bed low and locked, call sarabia within reach. No other concerns at this time.
[2022-06-30 08:00] VITALS: BP 153/88; PULSE 59; TEMP 98
--- NOTE | 2022-06-30 11:43 | NUR ---
Patient plesantly confused this morning. Standby guard to and from bathroom. Patient compliant with medidcations and follows most commands appropriately. No complaints of pain.
--- NOTE | 2022-06-30 13:06 | NUR ---
Per email sent by hospital senior animator, Judge Markell has signed and filled guardianship appointing the patient's two sons; Rajesh and Al. Liu referrals sent to: [facility]
[2022-06-30 15:36] VITALS: BP 124/78; PULSE 99; TEMP 97.9
--- NOTE | 2022-06-30 16:12 | NUR ---
Antonio from [facility] called stating that they are full and will not have a bed open until Monday or Monday of next week. Phone call from [facility] received stating that at this time they do not have the resources to transport this patient and if he was to need a Level ll placement, that [place] officials will not cross state lines to complete. Phone call received from [facility] in [place]. They accept this patient and ask about the wound on his foot. SW collaborated with the patient's RN who informes me that the wound is scabbed over and open to air. The patient has not been compliant with his CPAP during his stay. Per facillity request, the patient will need to have an EKG, covid swab and the CPAP order will need to be discharged. They are able to accept this patient any time after 1000. toilet and laundry soap supervisor notified to arrange secure transport.
--- NOTE | 2022-06-30 18:30 | NUR ---
Patient had good day today. No combative moments. Vitals set to Q8H, neuro checks canceled. Patient stand by guard in room. Forgets limitations, fall risk alarms in place. Patient plan to discharge tomorrow morning. EKG obtained. COVID swab needed first thing in the morning. No complaints of pain. All meds taken. Easy to redirect.
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
[2022-07-01 06:11] LABS: BASO # 0.1 K/mm3 (0.0-0.2); BASO % 0.6 % (0.0-2.0); EOS # 0.3 K/mm3 (0.0-0.7); EOS % 2.3 % (0.0-4.0); GRAN # 8.1 K/mm3 (1.4-6.5); GRAN % 72.8 % (42.2-75.2); HEMATOCRIT 46.5 % (42.0-52.0); HEMOGLOBIN 15.4 g/dl (13.5-18.0); LYMPH # 1.6 K/mm3 (1.2-3.4); MEAN CELL VOLUME 90 fl (80.0-100.0); MEAN CORPUSCULAR HEMOGLOBIN 30 pg (27-31); MEAN CORPUSCULAR HGB CONC 33 g/dl (33.0-37.0); MEAN PLATELET VOLUME 10.6 fl (7.4-10.4); MONO % 9.1 % (1.7-9.3); PLATELET COUNT 366 K/mm3 (130-400); RED BLOOD COUNT 5.18 M/mm3 (4.20-5.60); REDCELL DISTRIBUTION WIDTH-CV 12.8 % (11.5-14.5)
[2022-07-01 06:32] LABS: CALCIUM 11.2 mg/dL (8.4-10.2); CREATININE, serum 1.72 mg/dL (0.72-1.25)
[2022-07-01 07:12] VITALS: BP 213/83; PULSE 60; TEMP 98.7
[2022-07-01 08:30] VITALS: BP 124/64; PULSE 95
--- NOTE | 2022-07-01 08:30 | NUR ---
PREVIOUS BLOOD PRESSURE OF SYSTOLIC OF 213 A MISTAKE. PATIENT MOVING AND SPEAKING, PCT DID NOT RECHECK. RN INFORMED BY MD AND RECHECK- PATIENTS BLOOD PRESSURE IS WNL AND HE IS STABLE.
[2022-07-01] MEDS ORDERED: SEROQUEL 2525 MG/TAB PO ×2 (08:46→08:47)
--- NOTE | 2022-07-01 10:05 | NUR ---
SW served patient with legal documents that appoint his two sons as his guardians/conservators. SW facilitated meeting between the patient and his appointed claims attorney Lokesh Fajardo to review documents. Copies of court documents handed to community health counselor to put with the patient's chart. Clinical documentation and discharge orders faxed to .
--- NOTE | 2022-07-01 10:33 | NUR ---
TRANSPORTATION ARRIVED AT 1015AM TO PICKUP PATIENT. ALL BELONGINGS, HEARING AIDS, GLASSES/ CANE/ AND OTHER BELONGINS TAKEN WITH TRANSPORTATION TEAM. REPORT GIVEN TO CONTRERAS(?), NURSE AT [facility] TAKING OVER PATIENT.
== END 2022-07-01 10:30 | DRG 57 ==
LOC: COL.ER 13:50 → MEDICAL 16:55
PROVIDERS: Family Medicine; Internal Medicine; Physician Assistant; Student in an Organized Health Care Education/Training Program; ADMIT Internal Medicine
DX: G30.9 Alzheimer's disease, unspecified (principal); I13.0 Hypertensive heart and chronic kidney disease with heart failure and stage 1 through stage 4 chronic kidney disease, or unspecified chronic kidney disease; I48.20 Chronic atrial fibrillation, unspecified; N17.9 Acute kidney failure, unspecified; F05 Delirium due to known physiological condition; I48.91 Unspecified atrial fibrillation; Z96.641 Presence of right artificial hip joint; I50.9 Heart failure, unspecified; Z20.822 Contact with and (suspected) exposure to COVID-19; M19.90 Unspecified osteoarthritis, unspecified site; G47.33 Obstructive sleep apnea (adult) (pediatric); E78.5 Hyperlipidemia, unspecified; F10.10 Alcohol abuse, uncomplicated; N40.0 Benign prostatic hyperplasia without lower urinary tract symptoms; M54.30 Sciatica, unspecified side; G89.29 Other chronic pain; E11.65 Type 2 diabetes mellitus with hyperglycemia; E83.52 Hypercalcemia; F32.A Depression, unspecified; F02.80 Dementia in other diseases classified elsewhere, unspecified severity, without behavioral disturbance, psychotic disturbance, mood disturbance, and anxiety; N18.30 Chronic kidney disease, stage 3 unspecified; R41.0 Disorientation, unspecified; E11.42 Type 2 diabetes mellitus with diabetic polyneuropathy; Z79.01 Long term (current) use of anticoagulants; Z79.4 Long term (current) use of insulin; Z95.0 Presence of cardiac pacemaker; Z79.82 Long term (current) use of aspirin; Z23 Encounter for immunization; Z87.891 Personal history of nicotine dependence
CPT/HCPCS: 99232-AI; 99239; J1200; J1630; J1815; J2060; J2405; J7030

== ENCOUNTER 2023-01-03 10:16 | Outpatient (CLI) | payer MEDICARE, OTHER ==
[~2023-01-03] VITALS: Ht 182.9 cm; Wt 94.2 kg
[~2023-01-03 10:16] MED LIST changes: +MASON NATURAL2000 IU PO; +NEURONTIN600 MG/TAB PO; +SEROQUEL 2525 MG/TAB PO
[2023-01-03 10:56] VITALS: BP 117/66; PULSE 73; TEMP 97.7
--- NOTE | 2023-01-03 12:15 | NUR ---
PT LINE FLUSHED WITH D5W PER PROTOCOL. IV REMOVED. PT STATES HE IS FEELING WELL. PT WHEELED DOWN TO TRANSPORT VAN. ASSISTED INTO VAN
== END 2023-01-03 12:15 ==
LOC: EUO 10:16
DX: M86.171 Other acute osteomyelitis, right ankle and foot (principal)
CPT/HCPCS: J0875; J7060

== ENCOUNTER → 2023-01-17 | Outpatient (CLI) | payer MEDICARE, OTHER | LOC: COL.RAD 13:28 | DX: M86.171 Other acute osteomyelitis, right ankle and foot (principal); R60.0 Localized edema | CPT/HCPCS: A9575 ==

== ENCOUNTER 2023-02-22 08:27 | Outpatient (RCR) | payer MEDICARE, OTHER ==
[~2023-02-22] VITALS: Ht 0.2 cm; Wt 94.7 kg
[~2023-02-22 08:27] MED LIST changes: +ELIQUIS 2.5 PO; -ELIQUIS 5MG PO; -PERCOCET 325 MG1 TA2 PO; +ROXICODONE 55 MG/TAB PO; -TRULICITY0.75 MG/0. SQ; +TRULICITY1.5 MG/0.5 SQ
[2023-02-22 09:27] VITALS: BP 119/71; PULSE 98; TEMP 97.9
[2023-02-22] MEDS ORDERED: MIRALAX PA17 GM/Dose PO (10:46)
[2023-02-22] MEDS ORDERED: REMERON 15M15 MG/TA1 PO (10:47)
[2023-02-22] MEDS ORDERED: PROTONIX 40MG T40 MG PO (10:50)
[2023-02-22] MEDS ORDERED: GLUCERNA 240 M240 ML PO (10:51)
[2023-02-22] MEDS ORDERED: NOVOLOG FLEX100 U/ML SQ (10:52)
[2023-02-22] MEDS ORDERED: LEVSIN0.125 M1 PO (10:53)
[2023-02-22] MEDS ORDERED: MSIR10 MG/5 ML PO (10:55)
[2023-02-22] MEDS ORDERED: ROXICODONE 55 MG/TAB PO (10:55)
[2023-02-22] MEDS ORDERED: PHENERGAN 25 TA25 MG PO (10:57)
[2023-02-22] MEDS ORDERED: ZANAFLEX 4MG TAB4 MG PO (10:57)
== END 2023-02-22 11:08 ==
LOC: EUO 08:27
DX: M86.171 Other acute osteomyelitis, right ankle and foot (principal)
CPT/HCPCS: J0875; J7060

== ENCOUNTER 2023-11-17 06:18 | Day surgery (SDC) | payer MEDICARE, OTHER ==
[~2023-11-17] VITALS: Ht 182.9 cm; Wt 77.0 kg
[~2023-11-17 06:18] MED LIST changes: +GLUCERNA 240 M240 ML PO; +LEVSIN0.125 M1 PO; +MIRALAX PA17 GM/Dose PO; +MSIR10 MG/5 ML PO; +NOVOLOG FLEX100 U/ML SQ; +PHENERGAN 25 TA25 MG PO; +PROTONIX 40MG T40 MG PO; +REMERON 15M15 MG/TA1 PO; +ZANAFLEX 4MG TAB4 MG PO
[2023-11-17] MEDS ORDERED: LASIX 40MG TABL40 MG PO (07:32)
[2023-11-17] MEDS ORDERED: SEROQUEL50 MG PO (07:39)
[2023-11-17] MEDS ORDERED: COLACE 100100 MG/CAP PO (07:42)
[2023-11-17] MEDS ORDERED: MAG-OX 400400 MG/TAB PO (07:44)
[2023-11-17] MEDS ORDERED: K-TAB20 PO (07:46)
[2023-11-17] MEDS ORDERED: BUSPAR DIVIDOSE15 MG PO (07:51)
[2023-11-17] MEDS ORDERED: GENTLE LAXATIVE5 MG PO (07:53)
[2023-11-17] MEDS ORDERED: ATIVAN 0.50.5 MG/TAB PO (07:57)
[2023-11-17] MEDS ORDERED: MILK OF MA400 MG/52 (08:01)
[2023-11-17] MEDS ORDERED: ROXICODONE 55 MG/TAB PO (08:02)
[2023-11-17 09:25] VITALS: BP 114/63; PULSE 72; TEMP 97.1
[2023-11-17 09:40] VITALS: BP 118/70; PULSE 87
[2023-11-17 09:54] VITALS: BP 126/73; PULSE 80; TEMP 98
[2023-11-17 09:55] VITALS: BP 125/64; PULSE 88
[2023-11-17 10:25] VITALS: BP 131/73; PULSE 85
[2023-11-17 11:13] VITALS: BP 127/85; PULSE 86
--- NOTE | 2023-11-17 19:45 | NUR ---
0925: PT TO RECOVERY BAY 2 FROM ENDO PROCEDURE ROOM S/P PLEURX DRAIN PLACED IN L CHEST, 1L FLUID REMOVED DURING PLACEMENT. FRAIL PT SLOW TO WAKE, BUT PROTECTING AIRWAY. SNF STAFF/TRANSPORT AT BEDSIDE PLACED ON MONITOR, VSS ON RA DRSG (SUTURED, 4X4, TEGADERM, COVERING PLEURX CATH) NOTED TO HAVE SMALL (1.5 X 0.8CM) SEROSANGUINOUS SPOT ON 4X4 - MARKED AND VERIFIED TO BE STABLE THRU OUT STAY; RECEIVED REPORT AND ASSUMED CARE OF PT FROM GABY PURCELL. POST PROCEDURE CXR PENDING. XR CONTACTED AND AT BEDSIDE AT 0955. INSURANCE AUTH PAPERWORK FAXED ALONG WITH FACESHEET, H&P, PROCEDURE REPORT; ORIGINALS PLACED IN CHART TO BE SCANNED TO EMR - SNF STAFF UPDATED. ADDITIONAL SUPPLIES AND MANUFACTURE PT ED PROVIDED TO SNF STAFF/PLACED IN DC PACKET 0955 CXR DONE, PT LETHARGIC, COOPERATIVE, ABLE TO MAKE NEEDS KNOWN (BASELINE A&OX2 WITH UNDERLYING DEMENTIA) DENIES COMPLAINT. WAS ORIENTED TO DISPO AND PLAN - PT/STAFF AGREEABLE. PROVIDED FOOD/FLUIDS, TOLERATING WELL 1020 DR ORELLANA TO BEDSIDE, PT NEAR BASELING MENTATION, STILL LETHARGIC, VSS ON RA, DENIES COMPLAINT. OK PER MD TO DC BACK TO SNF. T/C TO SNF RN WITH UPDATE. SNF ORDERS, PLEURX PT ED, SUPPLIES, AND DC PACKET HANDED TO SNF STAFF PT HAS REMAINED AWAKE AND BASELINE, NAD, VSS ON RA, TOLERATING PO, IS WITHOUT SIGNIFICANT COMPLAINT, WITH [facility] TRANSPORT BY END OF STAY 1030 IV D/C'D. D/C INSTRUCTIONS, ANY FOLLOW UP REVIEWED AND HANDED TO PT/CG. ALL QUESTIONS AND CONCERNS ADDRESSED TO PT/CG/SNF NURSE SATISFACTION. 1040 PT ASSISTED TO EXIT VIA WC BY CG. ALL BELONGINGS, SUPPLIES AND PAPERWORK WITH CG, WHO WILL TRANSPORT PT BACK TO SNF.
== END 2023-11-17 10:40 ==
LOC: SDCO 06:18
DX: C34.92 Malignant neoplasm of unspecified part of left bronchus or lung (principal); J91.0 Malignant pleural effusion; G47.33 Obstructive sleep apnea (adult) (pediatric); Z87.891 Personal history of nicotine dependence
CPT/HCPCS: A7048; C1729; J2371; J2704; J7120